=== PATIENT | male | born 1975 | race Asian ===

== ENCOUNTER → 2019-05-09 | Outpatient (REF) ==
[2019-05-09 13:38] LABS: RUBELLA IgG QUALITATIVE IMMUNE (IMMUNE)
[2019-05-10 10:12] LABS: HERPES ZOSTER, VARICELLA IgG 3324 index (Immune >165); RUBEOLA IgG ANTIBODY >300.0 AU/mL (Immune >29.9)
== END ==
LOC: M LAB 11:46
PROVIDERS: ATTEND Nurse Practitioner Adult Health
DX: Z02.9 Encounter for administrative examinations, unspecified (principal)